=== PATIENT | female | born 1995 | race Caucasian/White ===

== ENCOUNTER 2023-05-15 13:40 | Inpatient (IN) | payer OTHER ==
[2023-05-15] MEDS: Acetaminophen 325 MG Tab PO PRN (14:33)
[2023-05-15] MEDS: Lactated Ringers 1,000 ML IV SCH (16:00)
[2023-05-15] MEDS ORDERED: Lidocaine 1% 50 ML MDV INJECT PRN (16:03)
[2023-05-15] MEDS ORDERED: Ondansetron 4 MG Tab.DIS PO PRN (16:03)
[2023-05-15] MEDS ORDERED: Nalbuphine HCl 10 MG/ 1ML Amp IVPUSH PRN (16:03)
[2023-05-15] MEDS ORDERED: Sodium Chloride 0.9% 10 ML Syringe FLUSH PRN (16:03)
[2023-05-15] MEDS ORDERED: Oxytocin/Lactated Ringers 30 UNIT/500 ML BAG IV SCH ×2 (16:15→19:05)
[2023-05-15 16:27] LABS: BASOPHILS PERCENT AUTO 0.2 % (0.0-1.0); EOSINOPHILS PERCENT AUTO 0.1 % (0.0-6.0); HEMATOCRIT 40.9 % (37.0-47.0); HEMOGLOBIN 13.8 gm/dl (12.0-16.0); IMMATURE GRAN ABSOLUTE AUTO 0.08 K/mm3 (0.00-0.05); IMMATURE GRAN PERCENT AUTO 0.5 % (0.0-0.4); LYMPHOCYTES ABSOLUTE AUTO 1.4 K/mm3 (1.0-4.8); LYMPHOCYTES PERCENT AUTO 8.1 % (24.0-44.0); MEAN CORPUSCULAR HEMOGLOBIN 27.8 pg (28.0-32.0); MEAN CORPUSCULAR HGB CONC 33.7 g/dl (32.0-36.0); MEAN CORPUSCULAR VOLUME 82.3 fl (83.0-99.0); MONOCYTES ABSOLUTE AUTO 0.9 K/mm3 (0.0-0.8); MONOCYTES PERCENT AUTO 5.2 % (0.0-8.0); NEUTROPHILS ABSOLUTE AUTO 14.3 K/mm3 (1.8-7.7); NEUTROPHILS PERCENT AUTO 85.9 % (41.0-71.0); PLATELET COUNT,PLT 274 K/mm3 (150-400); RED BLOOD CELL COUNT 4.97 M/mm3 (4.10-5.30); WHITE BLOOD CELL COUNT,WBC 16.66 K/mm3 (3.9-11.3)
[2023-05-15] MEDS ORDERED: ePHEDrine 50 MG/ML SDV IVPUSH PRN (16:51)
[2023-05-15] MEDS ORDERED: Bupivacaine/fentaNYL/NS 100 ML Bag EPIDUR PRN (16:51)
[2023-05-15] MEDS ORDERED: fentaNYL 100 MCG/2 ML SDV EPIDUR PRN (16:51)
[2023-05-15] MEDS ORDERED: diphenhydrAMINE 50 MG/ML SDV IVPUSH PRN (16:51)
[2023-05-15] MEDS: fentaNYL 100 MCG/2 ML SDV ONE (17:26)
[2023-05-15] MEDS: Oxytocin/Lactated Ringers 30 UNIT/500 ML BAG IV SCH (18:56)
[2023-05-15] MEDS ORDERED: Benzocaine/Menthol 20%-0.5% Spray 78 GM Cannister TOP PRN (19:05)
[2023-05-15] MEDS ORDERED: Hydrocortisone Acetate 25 MG Supp RECTAL PRN (19:05)
[2023-05-15] MEDS ORDERED: Acetaminophen 325 MG Tab PO PRN (19:05)
[2023-05-15] MEDS ORDERED: Magnesium Hydroxide 400 MG/5 ML Susp 30 ML Cup PO PRN (19:05)
[2023-05-15] MEDS ORDERED: Sodium Chloride 0.9% 10 ML Syringe FLUSH SCH (21:00)
[2023-05-15] MEDS: Docusate Sodium 100 MG Cap PO SCH (23:17)
[2023-05-15] MEDS: Ibuprofen 600 MG Tab PO PRN (23:17)
[2023-05-16] MEDS: Prenatal Multivitamin with Calcium/Folic Acid/Iron Tab PO SCH (11:24)
[2023-05-17] MEDS: Witch Hazel Medicated Pads 40/Jar TOP PRN (10:51)
[2023-05-17] MEDS: Measles, Mumps & Rubella Vaccine 0.5 ML SDV SUBCUT ONE (11:40)
== END 2023-05-17 13:37 | disposition home or self-care (01) | DRG 768 ==
LOC: JD.OBCHECK 13:40 → JD.OB 13:59 → JD.OBCHECK 16:42 → JD.OB 18:10 → OBSVTOIN 18:37
PROVIDERS: ADMIT Obstetrics & Gynecology; ATTEND Obstetrics & Gynecology
PROC: 10E0XZZ Delivery of Products of Conception, External Approach (ICD-10-PCS; principal; 2023-05-15)
PROC: 0DQR0ZZ Repair Anal Sphincter, Open Approach (ICD-10-PCS; 2023-05-15)
PROC: 10907ZC Drainage of Amniotic Fluid, Therapeutic from Products of Conception, Via Natural or Artificial Opening (ICD-10-PCS; 2023-05-15)
PROC: 3E0134Z Introduction of Serum, Toxoid and Vaccine into Subcutaneous Tissue, Percutaneous Approach (ICD-10-PCS; 2023-05-15)
DX: O48.0 Post-term pregnancy (principal); Z37.0 Single live birth; O70.22 Third degree perineal laceration during delivery, IIIb; O98.52 Other viral diseases complicating childbirth; Z3A.40 40 weeks gestation of pregnancy; B06.9 Rubella without complication; Z23 Encounter for immunization
CPT/HCPCS: 36415; 51701; 59025; 59409; 85025; 86592; 86850; 86900; 86901; 90707; A9270-GY; J3010; J7120; J7999